=== PATIENT | male | born 1995 | race Caucasian/White ===

== ENCOUNTER 2016-05-14 20:34 | Emergency (ER) | payer BC ==
[~2016-05-14] VITALS: Ht 182.8 cm; Wt 81.6 kg
[~2016-05-14 20:34] MED LIST: CIPRO500 MG PO; FLAGYL500 MG PO; MOTRIN800 MG PO
[2016-05-14] MEDS ORDERED: CEPHALEXIN500 M1 PO (22:35)
== END 2016-05-14 22:31 | disposition home or self-care (01) ==
LOC: ED 20:34
DX: S91.331A Puncture wound without foreign body, right foot, initial encounter (principal); Z29.12 Encounter for prophylactic antivenin; F17.200 Nicotine dependence, unspecified, uncomplicated; W22.8XXA Striking against or struck by other objects, initial encounter; Y93.89 Activity, other specified; Y92.89 Other specified places as the place of occurrence of the external cause; Y99.8 Other external cause status

== ENCOUNTER 2016-06-30 19:33 | Emergency (ER) | payer BC ==
[~2016-06-30] VITALS: Ht 182.8 cm; Wt 81.6 kg
[~2016-06-30 19:33] MED LIST changes: +CEPHALEXIN500 M1 PO
[2016-06-30] MEDS ORDERED: KEFLEX500 M1 PO (20:02)
[2016-06-30] MEDS ORDERED: NAPROSYN500 MG PO (20:02)
[2016-06-30] MEDS ORDERED: BACTRIM DS 8001 TA1 PO (20:02)
== END 2016-06-30 20:02 | disposition home or self-care (01) ==
LOC: ED 19:33
DX: L02.415 Cutaneous abscess of right lower limb (principal); F17.200 Nicotine dependence, unspecified, uncomplicated

== ENCOUNTER 2016-10-09 15:22 | Emergency (ER) | payer OTHER, BC ==
[~2016-10-09 15:22] MED LIST changes: +BACTRIM DS 8001 TA1 PO; +KEFLEX500 M1 PO; +NAPROSYN500 MG PO
== END 2016-10-09 17:13 | disposition home or self-care (01) ==
LOC: ED 15:22
DX: S13.4XXA Sprain of ligaments of cervical spine, initial encounter (principal); V49.88XA Car occupant (driver) (passenger) injured in other specified transport accidents, initial encounter; Y93.89 Activity, other specified; Y92.413 State road as the place of occurrence of the external cause; Y99.9 Unspecified external cause status

== ENCOUNTER 2016-11-04 16:38 | Emergency (ER) | payer BC ==
[~2016-11-04] VITALS: Ht 180.3 cm; Wt 90.7 kg
[2016-11-04] MEDS ORDERED: AUGMENTIN 875875 MG PO (17:32)
[2016-11-04] MEDS ORDERED: FLONASE ALLERG9.9 ML NS (17:32)
== END 2016-11-04 17:35 | disposition home or self-care (01) ==
LOC: ED 16:38
DX: J01.00 Acute maxillary sinusitis, unspecified (principal); F17.200 Nicotine dependence, unspecified, uncomplicated

== ENCOUNTER 2017-07-26 09:36 | Emergency (ER) | payer BC ==
[~2017-07-26] VITALS: Ht 180.3 cm; Wt 90.7 kg
[~2017-07-26 09:36] MED LIST changes: +AUGMENTIN 875875 MG PO; +FLONASE ALLERG9.9 ML NS
[2017-07-26] MEDS ORDERED: SEPTDS PO (09:48)
[2017-07-26] MEDS ORDERED: KEFLEX500 M1 PO (09:48)
[2017-07-26] MEDS ORDERED: NAPROSYN500 MG PO (09:48)
[2017-07-26] MEDS ORDERED: ZOFRAN4 MG PO (10:23)
[2017-07-26] MEDS ORDERED: CLINDAMYCIN150 MG PO (10:23)
== END 2017-07-26 12:29 | disposition home or self-care (01) ==
LOC: ED 09:36
DX: S91.311A Laceration without foreign body, right foot, initial encounter (principal); R03.0 Elevated blood-pressure reading, without diagnosis of hypertension; Z79.899 Other long term (current) drug therapy; W22.8XXA Striking against or struck by other objects, initial encounter; Y93.89 Activity, other specified; Y92.89 Other specified places as the place of occurrence of the external cause; Y99.8 Other external cause status

== ENCOUNTER 2017-07-28 11:16 | Inpatient (IN) | payer BC ==
[~2017-07-28] VITALS: Ht 180.3 cm; Wt 86.6 kg
--- NOTE | ~2017-07-28 | CON ---
[place], [place] REPORT OF CONSULTATION NAME: PAMELA PINEDA UNIT #: [id number] ROOM: 403 DOCTOR: INNA SALESRODRIGUEZ BIRTHDATE: [birth year] DOS: 07/29/2017 SUBJECTIVE: The patient is a 21-year-old male who lacerated his right foot between he 1st and 2nd toes on a push job coach on 07/25/2017. The patient had laceration repaired at the Emergency Room. The patient was admitted yesterday with cellulitis. PAST MEDICAL HISTORY: No pertinent past medical history. PAST SURGICAL HISTORY: No history of previous surgery. SOCIAL HISTORY: Marijuana abuse, smoking. Social alcohol use. FAMILY HISTORY: Father in good health. Mother with history of fibromyalgia, hypertension, lupus, stroke. ALLERGIES: None. PHYSICAL EXAMINATION: EXTREMITIES: Lower extremity examination: Pedal pulses palpable. There is erythema to the dorsal right foot. There is an incision to the first right webspace with sutures intact upon palpation, there was a small amount of bloody purulent drainage, but additional probing revealed no further fluctuance and drainable abscess. ASSESSMENT: Post-laceration with cellulitis, right foot, rule out underlying abscess. PLAN: Evaluation and management. Ordered Betadine-soaked Adaptic and gauze dressings daily. Continue IV antibiotics. The patient was informed that we may need to remove the sutures and possibly drain the area. Depending on results of MRI, an MRI was ordered of the right foot to rule out a developing underlying abscess. I did not want to open the wound unless definitively noted due to the tissue trauma. I discussed the case with Dr. Cardenas who will see the patient tomorrow. We may need to remove sutures and explore the area if anything is noted on the MRI, but again after probing and removal of the notable drainage, appeared to be improved. The patient understands he may need to have sutures removed and possible incision and drainage depending again on the results of MRI. The patient will be kept inhouse on IV antibiotics until we can reevaluate him tomorrow and evaluate results of the MRI. Again, the patient may need further intervention if warranted. [place], [place] REPORT OF CONSULTATION NAME: PAMELA PINEDA UNIT #: [id number] ROOM: 403 DOCTOR: RODRIGUEZ KEITH DPM BIRTHDATE: [birth year] RODRIGUEZ KEITH DPM CM:CONSTR:REPORT OF CONSULTATION 1228 08/01/17 [id number]
[~2017-07-28 11:16] MED LIST changes: -DOXYCYCLINE100 MG PO; -VITAMIN D5000 UNI1 PO
[2017-07-28 11:40] VITALS: BP 125/86; BP 139/86
[2017-07-28 12:41] LABS: BASO % 0.4 % (0.0-1.0); EOS # 0.1 10*3/uL (0.0-0.4); EOS % 1.1 % (1.0-4.0); HEMATOCRIT 43.5 % (42.0-52.0); HEMOGLOBIN 14.6 g/dl (14.0-18.0); LYMPH # 1.7 10*3/uL (1.3-4.4); LYMPH % 18.1 % (27.0-41.0); MEAN CELL VOLUME 90.4 fl (80.0-94.0); MEAN CORPUSCULAR HGB 30.4 pg (27.0-31.0); MEAN CORPUSCULAR HGB CONC 33.6 g/dl (33.0-37.0); MEAN PLATELET VOLUME 9.7 fl (9.6-12.3); MONO # 0.7 10*3/uL (0.1-1.0); MONO % 7.1 % (3.0-9.0); NEUT # 6.9 10*3/uL (2.3-7.9); NEUT % 72.9 % (47.0-73.0); PLATELET COUNT AUTOMATED 231 10*3/uL (130-400); RED BLOOD COUNT 4.81 10*6/uL (4.50-5.90); RED CELL DISTRI WIDTH 12.7 % (0-14.5); WHITE BLOOD COUNT 9.4 10*3/uL (4.8-10.8)
[2017-07-28 12:54] LABS: ALKALINE PHOSPHATASE 66 U/L (45-117); BUN 15 mg/dl (7-24); CHLORIDE 103 mmol/L (98-107); CREATININE 1.13 mg/dL (0.70-1.30); SGOT/AST 12 IU/L (3-35); SGPT/ALT 22 U/L (12-78); SODIUM 140 mmol/L (136-145)
[2017-07-28 16:00] VITALS: BP 129/68
[2017-07-28 20:00] VITALS: BP 144/88
[2017-07-29] VITALS: BP 125/71
[2017-07-29 06:19] LABS: BASO % 0.5 % (0.0-1.0); EOS # 0.1 10*3/uL (0.0-0.4); EOS % 1.7 % (1.0-4.0); HEMATOCRIT 40.4 % (42.0-52.0); HEMOGLOBIN 13.6 g/dl (14.0-18.0); LYMPH # 1.9 10*3/uL (1.3-4.4); LYMPH % 24.4 % (27.0-41.0); MEAN CELL VOLUME 89.4 fl (80.0-94.0); MEAN CORPUSCULAR HGB 30.1 pg (27.0-31.0); MEAN CORPUSCULAR HGB CONC 33.7 g/dl (33.0-37.0); MEAN PLATELET VOLUME 10.3 fl (9.6-12.3); MONO # 0.8 10*3/uL (0.1-1.0); NEUT # 4.8 10*3/uL (2.3-7.9); NEUT % 63.1 % (47.0-73.0); PLATELET COUNT AUTOMATED 219 10*3/uL (130-400); RED BLOOD COUNT 4.52 10*6/uL (4.50-5.90); RED CELL DISTRI WIDTH 12.7 % (0-14.5); WHITE BLOOD COUNT 7.6 10*3/uL (4.8-10.8)
[2017-07-29 06:44] LABS: BUN 15 mg/dl (7-24); CHLORIDE 105 mmol/L (98-107); HDL CHOLESTEROL 44 mg/dl (40-60); PHOSPHOROUS 4.2 mg/dL (2.5-4.9); POTASSIUM 3.8 mmol/L (3.5-5.1); SODIUM 140 mmol/L (136-145)
[2017-07-29 06:54] LABS: CHOLESTEROL 120 mg/dL (<200); FREE T4 1.23 ng/dl (0.76-1.46); LDL CHOLESTEROL 60 mg/dL (9-159); TRIGLYCERIDES 78 mg/dl (<150); VLDL CHOLESTEROL 16 mg/dL (6-40)
[2017-07-29 08:00] VITALS: BP 138/78
[2017-07-29 12:00] VITALS: BP 138/78
[2017-07-29 16:00] VITALS: BP 121/70
[2017-07-29 20:00] VITALS: BP 103/48
[2017-07-30] VITALS: BP 123/69
[2017-07-30 06:04] LABS: BASO # 0.1 10*3/uL (0.0-0.1); BASO % 0.7 % (0.0-1.0); EOS # 0.3 10*3/uL (0.0-0.4); EOS % 3.7 % (1.0-4.0); HEMATOCRIT 40.9 % (42.0-52.0); HEMOGLOBIN 13.8 g/dl (14.0-18.0); LYMPH # 2.6 10*3/uL (1.3-4.4); LYMPH % 35.4 % (27.0-41.0); MEAN CELL VOLUME 89.9 fl (80.0-94.0); MEAN CORPUSCULAR HGB 30.3 pg (27.0-31.0); MEAN CORPUSCULAR HGB CONC 33.7 g/dl (33.0-37.0); MONO # 0.6 10*3/uL (0.1-1.0); MONO % 8.1 % (3.0-9.0); NEUT # 3.8 10*3/uL (2.3-7.9); NEUT % 51.8 % (47.0-73.0); PLATELET COUNT AUTOMATED 230 10*3/uL (130-400); RED BLOOD COUNT 4.55 10*6/uL (4.50-5.90); RED CELL DISTRI WIDTH 12.7 % (0-14.5); WHITE BLOOD COUNT 7.3 10*3/uL (4.8-10.8)
[2017-07-30 09:37] VITALS: BP 124/68
[2017-07-30 12:00] VITALS: BP 117/63
[2017-07-30 16:00] VITALS: BP 135/83
[2017-07-30] MEDS ORDERED: DOXYCYCLINE100 MG PO (18:01)
[2017-07-30] MEDS ORDERED: VITAMIN D5000 UNI1 PO (18:01)
== END 2017-07-30 18:33 | disposition home or self-care (01) | DRG 603 ==
LOC: 4E 11:16
PROVIDERS: Internal Medicine; Podiatrist
DX: L03.115 Cellulitis of right lower limb (principal); E83.41 Hypermagnesemia; F12.10 Cannabis abuse, uncomplicated; D64.9 Anemia, unspecified; E55.9 Vitamin D deficiency, unspecified; R03.0 Elevated blood-pressure reading, without diagnosis of hypertension; R73.9 Hyperglycemia, unspecified; Z82.49 Family history of ischemic heart disease and other diseases of the circulatory system; Z82.3 Family history of stroke; Z84.89 Family history of other specified conditions; Z71.6 Tobacco abuse counseling; Z72.0 Tobacco use; Z79.899 Other long term (current) drug therapy

== ENCOUNTER → 2017-07-28 | Outpatient (CLI) | payer BC ==
[~2017-07-28] MED LIST changes: +CLINDAMYCIN150 MG PO; +DOXYCYCLINE100 MG PO; +SEPTDS PO; +VITAMIN D5000 UNI1 PO; +ZOFRAN4 MG PO
== END | disposition home or self-care (01) ==
LOC: WOUNDCARE 08:36
DX: S91.311A Laceration without foreign body, right foot, initial encounter (principal); F12.90 Cannabis use, unspecified, uncomplicated; F17.210 Nicotine dependence, cigarettes, uncomplicated; Z71.6 Tobacco abuse counseling; X58.XXXA Exposure to other specified factors, initial encounter; Y93.89 Activity, other specified; Y92.89 Other specified places as the place of occurrence of the external cause; Y99.8 Other external cause status

== ENCOUNTER → 2017-08-12 | Outpatient (CLI) | payer BC ==
[~2017-08-12] MED LIST changes: +DOXYCYCLINE100 MG PO; +VITAMIN D5000 UNI1 PO
== END | disposition home or self-care (01) ==
LOC: WOUNDCARE 03:21
DX: S91.311D Laceration without foreign body, right foot, subsequent encounter (principal); F17.210 Nicotine dependence, cigarettes, uncomplicated; Z71.6 Tobacco abuse counseling; X58.XXXD Exposure to other specified factors, subsequent encounter

== ENCOUNTER 2017-10-15 13:12 | Emergency (ER) | payer BC, MEDICAID ==
[~2017-10-15] VITALS: Ht 154.9 cm; Wt 90.7 kg
[~2017-10-15 13:12] MED LIST changes: +ZANTAC 150150 MG PO; +ZOFRAN ODT4 MG SL
[2017-10-15 14:27] LABS: BILIRUBIN NEGATIVE (NEGATIVE); BLOOD NEGATIVE (NEGATIVE); CLARITY CLEAR (CLEAR); COLOR YELLOW (YELLOW); GLUCOSE NEGATIVE (NEGATIVE); KETONE NEGATIVE (NEGATIVE); LEUKO ESTERASE NEGATIVE (NEGATIVE); NITRITE NEGATIVE (NEGATIVE); UROBILINOGEN 0.2 E.U./dl (0.2-1.0)
[2017-10-15 14:32] LABS: BASO # 0.1 10*3/uL (0.0-0.1); BASO % 0.6 % (0.0-1.0); EOS # 0.3 10*3/uL (0.0-0.4); EOS % 2.8 % (1.0-4.0); HEMATOCRIT 43.1 % (42.0-52.0); HEMOGLOBIN 14.7 g/dl (14.0-18.0); LYMPH # 1.7 10*3/uL (1.3-4.4); LYMPH % 19.3 % (27.0-41.0); MEAN CELL VOLUME 90.2 fl (80.0-94.0); MEAN CORPUSCULAR HGB 30.8 pg (27.0-31.0); MEAN CORPUSCULAR HGB CONC 34.1 g/dl (33.0-37.0); MEAN PLATELET VOLUME 10.6 fl (9.6-12.3); MONO # 0.7 10*3/uL (0.1-1.0); MONO % 7.6 % (3.0-9.0); NEUT # 6.2 10*3/uL (2.3-7.9); NEUT % 69.4 % (47.0-73.0); PLATELET COUNT AUTOMATED 233 10*3/uL (130-400); RED BLOOD COUNT 4.78 10*6/uL (4.50-5.90); RED CELL DISTRI WIDTH 12.9 % (0-14.5); WHITE BLOOD COUNT 8.9 10*3/uL (4.8-10.8)
[2017-10-15 14:36] LABS: BACTERIA 1+; EPITHELIAL CELLS 0-2; MUCOUS TRACE; RBC 0-2 rbc/hpf (0-2); WBC 0-2 wbc/hpf (0-5)
[2017-10-15 14:47] LABS: ALBUMIN 4.1 gm/dl (3.1-4.5); ALKALINE PHOSPHATASE 70 U/L (45-117); BUN 13 mg/dl (7-24); CHLORIDE 106 mmol/L (98-107); CREATININE 1.05 mg/dL (0.70-1.30); LIPASE 163 U/L (73-393); POTASSIUM 4.3 mmol/L (3.5-5.1); SGOT/AST 14 IU/L (3-35); SGPT/ALT 27 U/L (12-78); SODIUM 140 mmol/L (136-145); TOTAL PROTEIN 7.6 gm/dL (6.4-8.2)
[2017-10-15] MEDS ORDERED: ZOFRAN ODT4 MG SL (17:58)
== END 2017-10-15 17:54 | disposition home or self-care (01) ==
LOC: ED 13:12
PROVIDERS: Nurse Practitioner Family
DX: R10.32 Left lower quadrant pain (principal); F17.200 Nicotine dependence, unspecified, uncomplicated; Z86.73 Personal history of transient ischemic attack (TIA), and cerebral infarction without residual deficits

== ENCOUNTER 2018-12-09 04:16 | Emergency (ER) | payer OTHER ==
[~2018-12-09] VITALS: Ht 180.3 cm; Wt 99.8 kg
[2018-12-09] MEDS ORDERED: IBU800 M1 PO (04:39)
[2018-12-09] MEDS ORDERED: CLINDAMYCIN HC300 MG PO (04:39)
== END 2018-12-09 05:13 | disposition home or self-care (01) ==
LOC: ED 04:16
DX: J34.0 Abscess, furuncle and carbuncle of nose (principal); F17.200 Nicotine dependence, unspecified, uncomplicated

== ENCOUNTER 2021-12-23 18:12 | Emergency (ER) | payer MEDICAID ==
[~2021-12-23] VITALS: Wt 81.6 kg
[~2021-12-23 18:12] MED LIST changes: +CLINDAMYCIN HC300 MG PO; +IBU800 M1 PO
== END 2021-12-23 19:49 | disposition left against medical advice (07) ==
LOC: ED 18:12
DX: S90.31XA Contusion of right foot, initial encounter (principal); F12.10 Cannabis abuse, uncomplicated; W01.0XXA Fall on same level from slipping, tripping and stumbling without subsequent striking against object, initial encounter; Y93.01 Activity, walking, marching and hiking; Y92.69 Other specified industrial and construction area as the place of occurrence of the external cause; Y99.9 Unspecified external cause status

== ENCOUNTER 2024-12-13 07:40 | Emergency (ER) | payer OTHER ==
[~2024-12-13] VITALS: Ht 175.2 cm; Wt 63.2 kg
[2024-12-13 07:45] VITALS: BP 102/86
[2024-12-13] MEDS ORDERED: SODIUM CHLORIDE 0.9% 1,000 ML IV ONE (08:15)
[2024-12-13 09:04] VITALS: BP 140/80
[2024-12-13 09:30] LABS: MEAN CELL VOLUME 84.7 fl (80.0-94.0); MEAN CORPUSCULAR HGB 30.0 pg (27.0-31.0); MEAN PLATELET VOLUME 9.2 fl (9.6-12.3); NUCLEATED RED BLOOD CELL 0.0 % (0.0-0.0); NUCLEATED RED BLOOD CELL 0.0 10*3/uL (0.0-0.0); PLATELET COUNT AUTOMATED 426 10*3/uL (130-400); RED CELL DISTRI WIDTH 13.5 % (0-14.5)
[2024-12-13 09:31] LABS: MANUAL DIFF REFLEX YES
[2024-12-13 09:54] LABS: BUN 42 mg/dl (9-23); SGPT/ALT 24 U/L (5-49)
[2024-12-13 10:05] LABS: PLATELET SUFFICIENCY HIGH (NORMAL)
== END 2024-12-13 12:53 | disposition admitted as inpatient to this hospital (09) ==
LOC: ED 07:40 → 5E 11:43 → ED 11:43
PROVIDERS: Student in an Organized Health Care Education/Training Program
DX: N17.9 Acute kidney failure, unspecified (principal); T50.905A Adverse effect of unspecified drugs, medicaments and biological substances, initial encounter; F17.210 Nicotine dependence, cigarettes, uncomplicated; Y92.89 Other specified places as the place of occurrence of the external cause